=== PATIENT | male | born 1940 | race Caucasian/White ===

== ENCOUNTER 2022-01-25 10:32 | Outpatient (RCR) | payer MEDICARE, OTHER | END 2022-01-27 | LOC: ONC 10:32 | PROVIDERS: ATTEND Radiology Radiation Oncology | DX: C61 Malignant neoplasm of prostate (principal) | CPT/HCPCS: 99205 ==

== ENCOUNTER 2022-03-31 05:28 | Outpatient (CLI) | payer MEDICARE, OTHER ==
[~2022-03-31] VITALS: Ht 175.2 cm; Wt 118.2 kg
[2022-04-01] MEDS ORDERED: OMEP20CA18 PO (16:22)
== END 2022-04-01 16:26 | disposition home or self-care (01) ==
LOC: PREOP 05:28
PROVIDERS: ATTEND Radiology Radiation Oncology
DX: Z01.818 Encounter for other preprocedural examination (principal)

== ENCOUNTER 2022-04-22 08:51 | Outpatient (RCR) | payer MEDICARE, OTHER ==
[~2022-04-22 08:51] MED LIST: OMEP20CA18 PO
== END 2022-04-27 | disposition home or self-care (01) ==
LOC: ONC 08:51
PROVIDERS: ATTEND Radiology Radiation Oncology
DX: C61 Malignant neoplasm of prostate (principal)
CPT/HCPCS: 99213

== ENCOUNTER 2022-04-28 05:31 | Outpatient (CLI) | payer MEDICARE, OTHER ==
[~2022-04-28] VITALS: Ht 175.3 cm; Wt 118.2 kg
== END 2022-04-29 12:16 | disposition home or self-care (01) ==
LOC: PREOP 05:31
PROVIDERS: ATTEND Radiology Radiation Oncology
DX: Z01.818 Encounter for other preprocedural examination (principal)

== ENCOUNTER 2022-05-05 06:23 | Day surgery (SDC) | payer MEDICARE, OTHER ==
[~2022-05-05] VITALS: Ht 175 cm; Wt 118.2 kg
[2022-05-05] MEDS ORDERED: LACTATED RINGERS 1,000 ML IV PRN ×2 (06:30)
--- NOTE | 2022-05-05 06:47 | Progress Note-Pre Operative ---
Pre-Operative Progress Note Date of Available H&P: Apr 26, 2022 Date H&P Reviewed: May 05, 2022 Time H&P Reviewed: 06:46 History & Physical: H&P Reviewed, No changes noted Pre-Operative Diagnosis: Prostate cancer cT2a, PSA 8.9, [place] 7 (4+3) IRIS ZACARIAS MD May 05, 2022 06:47
--- NOTE | 2022-05-05 06:49 | Discharge Inst-Simple/Standard ---
Discharge Inst-Standard Reconcile Patient Problems Problems Reviewed?: Yes Discharge Medications New, Converted or Re-Newed RX: Other (Patient has antibiotic at home with instructions how to take.) Patient Instructions/Follow Up Plan of Care/Instructions/FU: Follow up at [facility] cancer center on 05/18/22 at 9:[address] scan. Drink 1/2 bottle of oral contrast at 8:30 a.m. Activity as Tolerated: Yes Discharge Diet: No Restrictions IRIS ZACARIAS MD May 05, 2022 06:49
[2022-05-05] MEDS ORDERED: proPOfol 200 MG/20 ML (DIPRIVAN) VIAL IV ONE (07:12)
[2022-05-05] MEDS ORDERED: LIDOCAINE PF 2% 5 ML (XYLOCAINE) VIAL ONE (07:12)
[2022-05-05] MEDS ORDERED: ONDANSETRON 4 MG/2 ML (SDV) Z0FRAN ONE (07:12)
[2022-05-05] MEDS ORDERED: fentaNYL INJ 100 MCG/2 ML AMP ONE (07:12)
[2022-05-05] MEDS ORDERED: ONDANSETRON 4 MG/2 ML (SDV) Z0FRAN IVP PRN (07:15)
[2022-05-05] MEDS ORDERED: morphine INJ 10 MG/ML 1ML (SYR OR VIAL) IVP ONE (07:15)
[2022-05-05] MEDS ORDERED: SEVOFLURANE (ULTANE) 15 ML INHAL SOLN ONE (08:27)
[2022-05-05 08:36] VITALS: BP 124/73
[2022-05-05 08:40] VITALS: BP 128/77
[2022-05-05 08:50] VITALS: BP 113/65
[2022-05-05 09:00] VITALS: BP 112/84
--- NOTE | 2022-05-05 09:03 | Progress Note-Post Operative ---
Post-Operative Progess Note Surgeon (s)/Pharmacy Intake Technician (s) Surgeon IRIS ZACARIAS MD Pharmacy Intake Technician: N/A Pre-Operative Diagnosis Prostate cancer cT2a, PSA 8.9, [place] 7 (4+3) Post-Operative Diagnosis Same as preop Procedure & Operative Findings Date of Procedure 05/05/22 Procedure Performed/Findings (1) Placement of fiducial gold seed markers x 3 (2) Injection of biodegradable hydrogel prostate-rectal spacer utilizing the [employer] system Anesthesia Type General Estimated Blood Loss Estimated blood loss (mL): None Specimens/Packing Specimens Removed None Packing: None IRIS ZACARIAS MD May 05, 2022 09:03
[2022-05-05 09:05] VITALS: BP 116/81
[2022-05-05 09:35] VITALS: BP_SYST 105; BP_SYST 106; BP_DIAS 78; BP_DIAS 81
--- NOTE | 2022-05-05 11:20 | Anesthesia-General Post-Op ---
General Patient Condition Mental Status/LOC: Same as Preop Cardiovascular: Satisfactory Nausea/Vomiting: Absent Respiratory: Satisfactory Pain: Controlled Complications: Absent Post Op Complications Complications None Follow Up Care/Instructions Patient Instructions None needed. Anesthesia/Patient Condition Patient Condition Patient was doing well this morning after the procedure with no complaints, stable vital signs, no apparent adverse anesthesia problems. No complications reported per nursing. NEREYDA CRESPO DO May 05, 2022 11:20
== END 2022-05-05 09:45 | disposition home or self-care (01) ==
LOC: SDC 06:23
PROVIDERS: ATTEND Radiology Radiation Oncology
DX: C61 Malignant neoplasm of prostate (principal); E66.9 Obesity, unspecified; Z68.38 Body mass index [BMI] 38.0-38.9, adult; Z87.891 Personal history of nicotine dependence
CPT/HCPCS: 55874; 55876; 87081; C1889

== ENCOUNTER → 2022-05-28 | Outpatient (RCR) | payer MEDICARE, OTHER | END | disposition home or self-care (01) | LOC: ONC 05-18 08:53 | PROVIDERS: ATTEND Radiology Radiation Oncology | DX: C61 Malignant neoplasm of prostate (principal) | CPT/HCPCS: 77300; 77301; 77334; 77338; 77385 ==

== ENCOUNTER 2022-06-25 08:08 | Outpatient (RCR) | payer MEDICARE, OTHER | END 2022-06-27 | disposition home or self-care (01) | LOC: ONC 08:08 | PROVIDERS: ATTEND Radiology Radiation Oncology | DX: Z51.0 Encounter for antineoplastic radiation therapy (principal); C61 Malignant neoplasm of prostate | CPT/HCPCS: 77300; 77336; 77385 ==

== ENCOUNTER → 2022-07-28 | Outpatient (RCR) | payer MEDICARE, OTHER | END | disposition home or self-care (01) | LOC: ONC 06-28 08:11 | PROVIDERS: ATTEND Radiology Radiation Oncology | DX: Z51.0 Encounter for antineoplastic radiation therapy (principal); C61 Malignant neoplasm of prostate | CPT/HCPCS: 77336; 77385 ==

== ENCOUNTER 2022-07-29 07:55 | Outpatient (RCR) | payer MEDICARE, OTHER | END 2022-08-27 | disposition home or self-care (01) | LOC: ONC 07:55 | PROVIDERS: ATTEND Radiology Radiation Oncology | DX: Z51.0 Encounter for antineoplastic radiation therapy (principal); C61 Malignant neoplasm of prostate | CPT/HCPCS: 77336; 77385 ==

== ENCOUNTER 2022-09-02 10:20 | Outpatient (RCR) | payer MEDICARE, OTHER | END 2022-09-27 | disposition home or self-care (01) | LOC: ONC 10:20 | PROVIDERS: ATTEND Radiology Radiation Oncology | DX: C61 Malignant neoplasm of prostate (principal) | CPT/HCPCS: 84153; G0463; 36415; 99213 ==